=== PATIENT | male | born 1970 | race African-American/Black ===

== ENCOUNTER 2020-11-24 21:21 | Emergency (ER) | payer OTHER ==
[2020-11-25 00:06] LABS: BASOPHIL 0.2 % (0-2); EOSINOPHIL 0.2 % (0-5); HCT 48.6 % (42.0-52.0); HGB 16.6 g/dl (13.2-18.0); LYMPHOCYTE 16.6 % (15-48); MCH 28.9 pg (25.0-31.0); MCHC 34.2 g/dL (32.0-36.0); MCV 84.7 fL (78.0-100.0); MONOCYTE 9.1 % (0-12); MPV 10.6 fL (6.0-9.5); NEUTROPHIL 73.4 % (41-80); NRBC 0; PLT 262 K/uL (150-400); RBC 5.74 M/uL (4.70-6.00); RDW 13.7 % (11.5-14.0); WBC 9.8 K/uL (4.0-10.5)
[2020-11-25 00:22] LABS: ALBUMIN 4.7 g/dL (3.4-5.0); ALKALINE PHOSHATASE 89 U/L (46-116); ALT 35 U/L (16-63); AST 18 U/L (15-37); BILIRUBIN - TOTAL 0.9 mg/dL (0.2-1.0); BUN 20 mg/dL (7-18); BUN/CREAT RATIO (CALC) 8.1 RATIO; CHLORIDE 102 mmol/L (98-107); CO2 (BICARBONATE) 22 mmol/L (21-32); CREATININE 2.46 mg/dL (0.67-1.17); GLOBULIN (CALCULATION) 3.9 g/dL; GLUCOSE 127 mg/dL (74-106); POTASSIUM 3.5 mmol/L (3.5-5.1); TOTAL PROTEIN 8.6 g/dL (6.4-8.2)
[2020-11-25 01:48] LABS: BILIRUBIN 1+ mg/dL (NEGATIVE); BLOOD NEGATIVE Ery/uL (NEGATIVE); CLARITY CLEAR (CLEAR); COLOR YELLOW (YELLOW); GLUCOSE (U) NORMAL (NORMAL); LEUKOCYTES NEGATIVE Leu/uL (NEGATIVE); NITRITE NEGATIVE (NEGATIVE); PROTEIN TRACE (LOW) mg/dL (NEGATIVE); SPECIFIC GRAVITY >=1.030 (1.001-1.030)
[2020-11-25 01:52] LABS: MARIJUANA (THC) NEGATIVE (NEGATIVE)
[2020-11-25 01:53] LABS: AMPHETAMINES POSITIVE (NEGATIVE); BARBITURATES NEGATIVE (NEGATIVE); ECSTASY (MDMA) POSITIVE (NEGATIVE); METHADONE NEGATIVE (NEGATIVE); OPIATES NEGATIVE (NEGATIVE); OXYCODONE NEGATIVE (NEGATIVE)
== END 2020-11-25 03:58 ==
LOC: FER 21:21
PROVIDERS: Emergency Medicine
DX: F22 Delusional disorders (principal); F19.10 Other psychoactive substance abuse, uncomplicated; R79.89 Other specified abnormal findings of blood chemistry; Z20.822 Contact with and (suspected) exposure to COVID-19
CPT/HCPCS: 36415; 70450; 71045; 80053; 80305; 81003; 84484; 85025; 93005; 96372; G0480; J2060; J7030; U0002